=== PATIENT | female | born 1995 | race Caucasian/White ===

== ENCOUNTER 2017-08-15 17:16 | Emergency (ER) | payer SELFPAY ==
[~2017-08-15] VITALS: Ht 167.6 cm; Wt 63.0 kg
[2017-08-15] MEDS ORDERED: LORAZEPAM 2MG/ML CPJ IM ONE (18:45)
[2017-08-15] MEDS ORDERED: SODIUM CHLORIDE 0.9% 1,000 ML IV ONE (18:45)
[2017-08-15] MEDS ORDERED: OLANZAPINE 10 MG/VIAL IM ONE (19:45)
[2017-08-15] MEDS ORDERED: HALOPERIDOL LACTATE 5MG/ML VIAL IM ONE (19:45)
[2017-08-15 21:39] LABS: CHLORIDE 106 mEq/L (98-107)
[2017-08-15 21:45] LABS: BASOPHILS % 0.5 % (0.0-2.0); CARBON DIOXIDE 22 mEq/L (21-32); EOSINOPHILS % 0.2 % (0.0-5.0); ETHANOL BLOOD < 10 mg/dL; HEMATOCRIT. 42.4 % (36.0-48.0); HEMOGLOBIN. 14.6 g/dL (12.0-16.0); LYMPHOCYTES % 20.9 % (20.0-50.0); MEAN CORPUSCULAR HEMOGLOBIN 30.4 pg (28.0-32.0); MEAN CORPUSCULAR VOLUME 88.4 fL (81.0-99.0); MEAN PLATELET VOLUME 7.6 fl (7.4-10.4); MONOCYTES % 10.8 % (2.0-8.0); NEUTROPHILS % 67.6 % (40.0-76.0); PLATELET 235 x1000/uL (130-400); RED BLOOD CELL COUNT 4.79 mill/uL (4.2-5.4)
[2017-08-16 02:32] LABS: *BARBITURATES SCREEN URINE NEGATIVE (NEGATIVE); *BENZODIAZEPINES SCREEN URINE NEGATIVE (NEGATIVE); *COCAINE SCREEN URINE NEGATIVE (NEGATIVE); METHADONE URINE SCREEN NEGATIVE (NEGATIVE); OPIATES URINE SCREEN NEGATIVE (NEGATIVE); PHENCYCLIDINE URINE SCREEN NEGATIVE (NEGATIVE)
[2017-08-16 03:02] LABS: *AMPHETAMINES SCREEN URINE PRESUMTIVE POSITIVE (NEGATIVE); CANNABINOID URINE SCREEN PRESUMTIVE POSITIVE (NEGATIVE)
[2017-08-16] MEDS ORDERED: HALOPERIDOL LACTATE 5MG/ML VIAL IM ONE (08:00)
[2017-08-16] MEDS ORDERED: OLANZAPINE 10 MG/VIAL IM ONE (08:00)
[2017-08-16] MEDS ORDERED: LORAZEPAM 2MG/ML CPJ IM ONE (08:00)
[2017-08-16] MEDS ORDERED: RISPERIDONE 1MG TABLET PO SCH (13:45)
[2017-08-16 21:10] VITALS: BP 107/75
== END 2017-08-16 21:18 | disposition home or self-care (01) ==
LOC: ER 17:16
DX: F33.9 Major depressive disorder, recurrent, unspecified (principal); F17.200 Nicotine dependence, unspecified, uncomplicated; F15.10 Other stimulant abuse, uncomplicated; R44.1 Visual hallucinations; R44.0 Auditory hallucinations
CPT/HCPCS: 36415; 80048; 80305; 80307; 80329; 85025; 96360; 96372; 99284; G0482; J2060; J3490; J7040; Z7610; J7030